=== PATIENT | male | born 1975 | race Caucasian/White ===

== ENCOUNTER 2019-05-14 11:21 | Emergency (ER) | payer MEDICARE, MEDICAID ==
[~2019-05-14] VITALS: Ht 172.7 cm; Wt 65.9 kg
[~2019-05-14 11:21] MED LIST: DIVA-78 PO; METO25 PO; QUET200T PO
[2019-05-14 12:01] VITALS: BP 131/73
== END 2019-05-14 12:13 | disposition left against medical advice (07) ==
LOC: EMS 11:24
DX: G47.00 Insomnia, unspecified (principal); Z53.21 Procedure and treatment not carried out due to patient leaving prior to being seen by health care provider